=== PATIENT | female | born 1995 | race Caucasian/White ===

== ENCOUNTER 2019-08-03 12:50 | Emergency (ER) | payer BC ==
--- NOTE | 2019-08-03 13:09 | UC ---
Complaint Female HPI - HPI Summary HPI Summary: 24yo female presenting with complaint for "possible BV." Patient states for the last week she has had a "thin watery discharge with fishy odor." States she has also noted some vaginal spotting which is unusual for her since getting her IUD 2 years ago. Notes mild pelvic pressure intermittently. Denies pain. Denies n/ v. Denies urinary symptoms. Denies fever and chills. Denies concern for sexually transmitted infections but states she would like to be screened today. Denies h/o STIs. - History Of Current Complaint Stated Complaint: PERSONAL Hx Obtained From: Patient - Allergies/Home Medications Allergies/Adverse Reactions: Allergies Allergy/AdvReac Type Severity Reaction Status Date / Time No Known Allergies Allergy Verified 08/03/19 13:07 Home Medications: Home Medications Levonorgestrel (Iud) [Kyleena IUD] 1 implant ONCE 08/03/19 [History Confirmed ] metroNIDAZOLE [Flagyl] 500 mg PO BID #14 tablet 08/03/19 [Rx] PMH/Surg Hx/FS Hx/Imm Hx Previously Healthy: Yes - Family History Known Family History: Positive: Non-Contributory Review of Systems All Other Systems Reviewed And Are Negative: Yes Constitutional: Positive: Negative Respiratory: Positive: Negative Cardiovascular: Positive: Negative Gastrointestinal: Positive: Negative Genitourinary: Positive: Vaginal/Penile Discharge - "thin watery discharge with fishy odor", Abnormal Bleeding - vaginal "spotting". Negative: Dysuria, Hematuria, Frequency, Urgency Musculoskeletal: Positive: Negative Neurological/Mental Status: Positive: Negative Physical Exam Triage Information Reviewed: Yes Appearance: Well-Appearing, No Pain Distress, Well-Nourished Vital Signs: Vital Signs (72 hours) 08/03/19 13:07 Temperature 98 F Pulse Rate 75 Respiratory 16 Rate Blood Pressure 112/73 (mmHg) O2 Sat by Pulse 97 Oximetry Lab Results 08/03/19 Range/Units 13:25 POC Urine Color Yellow POC Urine Clarity Clear POC Urine pH 6.0 (5-9) POC Ur Specif [place] 1.020 (1.010-1.030) POC Urine Protein Negative (Negative) POC Ur Glucose (UA) Negative (Negative) POC Urine Ketones Negative (Negative) POC Urine Blood 2+ A (Negative) POC Urine Nitrite Negative (Negative) POC Urine Bilirubin Negative (Negative) POC Urine Urobilinogen 0.2 (Negative) POC U Leukocyte Esteras Trace A (Negative) Vital Signs Reviewed: Yes Eyes: Positive: Conjunctiva Clear ENT: Positive: Hearing grossly normal Neck: Positive: Supple Respiratory: Positive: No respiratory distress, No accessory muscle use Abdominal Exam: Normal Abdomen Description: Positive: Nontender, Soft. Negative: CVA Tenderness (R), CVA Tenderness (L) Neurological Exam: Normal Neurological: Positive: Alert Psychological: Positive: Age Appropriate Behavior Complaint Female Dx - Course Course Of Treatment: Patient declined pelvic exam. UA positive for trace leuks and 2+ blood. No urinary symptoms so will not treat for UTI. I treated patient with flagyl for possible bacterial vaginosis based on symptoms. Patient received testing for yeast, bv, trichomonas, gonorrhea, and chlamydia. Informed the patient that she would be notified with any results that require change in treatment. Patient voiced understanding and agreed with treatment plan. - Differential Dx/Diagnosis Differential Diagnosis/HQI/PQRI: Sexually Transmitted Disease, Urinary Tract Infection, Other - vaginal candidiasis, bacterial vaginosis Provider Diagnosis: Bacterial vaginosis Discharge ED - Sign-Out/Discharge Documenting (check all that apply): Patient Departure All imaging exams completed and their final reports reviewed: No Studies - Discharge Plan Condition: Stable Disposition: HOME Prescriptions: metroNIDAZOLE [Flagyl] 500 mg PO BID #14 tablet Patient Education Materials: Bacterial Vaginosis (ED), Sexually Transmitted Diseases (ED), Safe Sex (ED) Referrals: No Primary Care Phys,NOPCP [Primary Care Provider] - Additional Instructions: Take Flagyl as prescribed to treat possible bacterial vaginosis. Do not consume alcohol of any kind while taking this medication, as it can cause severe stomach upset. You have received testing for yeast, BV, trichomonas, gonorrhea, and chlamydia. You will be notified only with results that require a change in treatment. Return if symptoms have not improved within 7 days. - Billing Disposition and Condition Condition: STABLE Disposition: Home
[2019-08-03 13:10] VITALS: BP 112/73
[2019-08-04 11:50] LABS: Chlamydia trachomatis NAA Negative (Negative); Neisseria gonorrhoeae (GC) NAA Negative (Negative)
--- NOTE | 2019-08-05 07:11 | UC ---
- Progress Note Progress Note: Your results were positive for Gardenerella vaginalis which is consistent with bacterial vaginalis (BV) - and were given the appropriate medication for this. Your gonorrhea and chlamydia were both negative If your symptoms have persisted or worsened, despite treatment, recommend follow up with PCP or return to urgent care Course/Dx - Diagnoses Provider Diagnoses: Bacterial vaginosis Discharge ED - Sign-Out/Discharge Documenting (check all that apply): Post-Discharge Follow Up All imaging exams completed and their final reports reviewed: No Studies - Discharge Plan Condition: Stable Disposition: HOME Prescriptions: metroNIDAZOLE [Flagyl] 500 mg PO BID #14 tablet Patient Education Materials: Bacterial Vaginosis (ED), Sexually Transmitted Diseases (ED), Safe Sex (ED) Referrals: No Primary Care Phys,NOPCP [Primary Care Provider] - Additional Instructions: Take Flagyl as prescribed to treat possible bacterial vaginosis. Do not consume alcohol of any kind while taking this medication, as it can cause severe stomach upset. Return if symptoms have not improved within 7 days. - Billing Disposition and Condition Condition: STABLE Disposition: Home
== END 2019-08-03 13:39 | disposition home or self-care (01) ==
LOC: UCCORT 12:50
DX: N76.0 Acute vaginitis (principal); Z97.5 Presence of (intrauterine) contraceptive device
CPT/HCPCS: 81003; 87086; 87480; 87491; 87510; 87591; 87660; 99202; G0463